=== PATIENT | male | born 2000 | race American Indian/Alaskan Native ===

== ENCOUNTER 2020-11-20 15:21 | Emergency (ER) | payer MEDICAID ==
[2020-11-20 16:33] VITALS: BP 118/66
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
== END 2020-11-20 19:30 | disposition home or self-care (01) ==
LOC: ED 15:21
DX: S60.312A Abrasion of left thumb, initial encounter (principal); M79.645 Pain in left finger(s); M54.5 Low back pain; J45.909 Unspecified asthma, uncomplicated; V87.7XXA Person injured in collision between other specified motor vehicles (traffic), initial encounter; Y93.89 Activity, other specified; Y92.89 Other specified places as the place of occurrence of the external cause; Y99.8 Other external cause status
CPT/HCPCS: 72100; 99283

== ENCOUNTER 2020-12-04 19:05 | Emergency (ER) | payer MEDICAID, OTHER ==
[2020-12-04 21:13] VITALS: BP 112/71
--- NOTE | 2020-12-04 21:29 | Emergency Department Report ---
Chief Complaint: Headache Stated Complaint: HEADACHE/MUCUS Time Seen by Provider: 12/04/20 21:23 - HPI History of Present Illness: 20-year-old male patient with history of asthma presents to the emergency department with complaints of nasal congestion for 6 days. No known sick contacts. No current steroid or antibiotic use. No recent travel. Patient has not taken any vphm-xns-uevfjgy medications for symptomatic relief. Patient has not been tested for COVID-19 since the onset of his symptoms. Denies fever, chills, chest pain, shortness of breath, wheezing, hemoptysis, vomiting, headache, neck stiffness, rash. Denies all other complaints at this time. - ROS Review of Systems: GENERAL: Negative for fever. ENT: Positive for nasal congestion. CARDIOVASCULAR: Negative for chest pain. PULMONARY: Negative for shortness of breath. GASTROINTESTINAL: Negative for abdominal pain. MUSCULOSKELETAL: Negative for back pain. NEUROLOGICAL: Negative for headache. INTEGUMENTARY: Negative for rash. - Exam Vital Signs: Vital Signs 12/04/20 21:10 Temperature 98.9 F Pulse Rate 67 Respiratory 18 Rate Blood Pressure 112/71 [Right] O2 Sat by Pulse 100 Oximetry Physical Exam: General: Awake and alert. No acute distress. Head: Atraumatic, normocephalic. Eyes: EOMI. Pupils are equal and round. Normal sclera and conjunctiva. ENT: Oral mucosa is moist. Normal pharyngeal exam. Normal otoscopic exam. Neck: Supple. No lymphadenopathy. Pulmonary: No respiratory distress. Clear to auscultation bilaterally. Cardiac: Regular rate and rhythm. Pulses are palpable and equal bilaterally. No lower extremity cyanosis or edema. Skin: Warm and dry. No rashes. Abdomen: Soft, non-tender, non-protuberant. No guarding, rigidity, or rebound. Bowel sounds are normal. No organomegaly or masses noted. Back: Normal alignment. No CVA tenderness. Extremities: Symmetrical. Full range of motion intact. Neurological: Alert and oriented, appropriately interactive, no focal deficits. Psych: Cooperative. Appropriate mood and affect. Speech is evenly metered. Thoughts are logically construed. MSE screening note: Focused history and physical exam performed. Due to findings the following was ordered: ED Medical Decision Making - Medical Decision Making Patient presents to the emergency department with complaints of nasal congestion for 1 week. He is afebrile, hemodynamically stable, tolerating oral intake without difficulty, no distress. Symptoms are unchanged today. He has not tried any crgb-xrf-tfhgeps medications for his symptoms. He has not been tested for COVID-19 since the onset of his symptoms. Physical exam is unremarkable. There is no clinical indication for emergent medical treatment. Discharged home with instructions for symptomatic relief. Disease transmission precautions provided. ED Disposition for MSE Clinical Impression: Encounter for medical screening examination Disposition: HOME / SELF CARE / HOMELESS Is pt being admited?: No Does the pt Need Aspirin: No Condition: Stable Instructions: Medical Screening Exam Additional Instructions: Use any ueny-yrj-ahtmrhe cough/cold remedy as directed for symptomatic relief. Exposure to warm humidified air may help relieve congestion. Rest. Drink plenty of fluids. Wash hands frequently to prevent disease transmission. Do not share food or drinks with others. Follow-up with primary care provider this week. Call tomorrow to schedule an appointment. See referral information below. Return to the emergency department immediately for new or worsening symptoms. Referrals: YEFRI FELICIANO MD [Staff Physician] - 3-5 Days [facility] [Provider Group] - 3-5 Days Forms: Work/School Release Form(ED) Time of Disposition: 21:28
== END 2020-12-04 22:48 | disposition home or self-care (01) ==
LOC: ED 19:05
DX: Z00.00 Encounter for general adult medical examination without abnormal findings (principal); R09.81 Nasal congestion; J45.909 Unspecified asthma, uncomplicated
CPT/HCPCS: 99281

== ENCOUNTER 2020-12-12 17:11 | Emergency (ER) | payer MEDICAID ==
[2020-12-12 17:38] VITALS: BP 101/53
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
[2020-12-12 18:46] LABS: Bilirubin,Urine NEG (Negative); Blood,Urine NEG (Negative); Color,Urine Yellow (Yellow); Mucus,Urine FEW /HPF; Protein,Urine <15 mg/dL mg/dL (Negative); Urobilinogen,Urine < 2.0 mg/dL (<2.0)
--- NOTE | 2020-12-12 22:32 | Ultrasound Report ---
Scrotal Ultrasound HISTORY: left testicular pain. TECHNIQUE: Grayscale and color imaging performed. COMPARISON: None FINDINGS: Right testicle measures 4.7 x 1.9 x 3.9 cm and the left measures 4.4 x 2.5 x 3.6 cm. Preser karen bilateral blood flow is present. In the region of the left epididymis, there is a large cyst buck uring 3.1 cm in maximal dimension. The right epididymis is unremarkable. No hydrocele or varicocele. IMPRESSION: Large cyst in the region of the left epididymis. Otherwise nothing acute. Signer Name: Sajan Gómez MD Signed: 12/12/2020 10:28 PM Workstation Name: [id number]
== END 2020-12-12 22:59 | disposition home or self-care (01) ==
LOC: ED 17:11
DX: N50.812 Left testicular pain (principal); R39.198 Other difficulties with micturition; J45.909 Unspecified asthma, uncomplicated
CPT/HCPCS: 81001; 93975; 99283